=== PATIENT | male | born 1955 | race Two or more races ===

== ENCOUNTER → 2025-01-17 | Outpatient (CLI) | payer OTHER, MEDICAID, SELFPAY ==
--- NOTE | 2025-01-17 14:00 | XR_ITS ---
Examination: Steroid injection left shoulder joint with imaging guidance Fluoroscopy AP left shoulder single view INDICATIONS: Left shoulder pain months. Exam date and time: January 17, 2025 1416 hours Informed consent provided. Technique: A timeout was completed verifying correct patient, procedure, site, positioning. The patient was placed in supine position appropriate for the steroid injection The patient's site was prepped and draped in sterile fashion 5 cc 1% lidocaine administered locally for anesthesia. Sterile drape applied, maximum barrier sterile technique. Utilizing fluoroscopic guidance, 23-gauge needle placed in the left shoulder joint 1 cc Kenalog 40 introduced into the left shoulder joint The patient was in satisfactory and stable condition on completion of the procedure Attending radiologist was present for the entire procedure Estimated blood loss 0 cc. Impression: Successful steroid injection left shoulder joint with imaging guidance AP left shoulder single view Fluoroscopy 8.4 minute radiation dose 2.18 milligray .
[2025-01-17] MEDS: TRIAMCINOLONE ACET INJ 40 MG/ML VIAL IM (14:54)
== END | disposition home or self-care (01) ==
PROVIDERS: PCP Physician Assistant; Referring Provider Orthopaedic Surgery; Visit Provider Orthopaedic Surgery
DX: M25.512 Pain in left shoulder (principal)
CPT/HCPCS: 20610; 77002; J3301